=== PATIENT | male | born 1995 | race Caucasian/White ===

== ENCOUNTER 2019-08-15 19:14 | Inpatient (IN) | payer SELFPAY ==
[~2019-08-15] VITALS: Ht 177.8 cm; Wt 81.6 kg
[~2019-08-15 19:14] MED LIST: CYCL5TAB PO; IBUP-1007 PO
[2019-08-15] MEDS ORDERED: IV NORMAL SALINE 1000ML BAG 1,000 ML IV SCH (19:18)
[2019-08-15] MEDS ORDERED: ONDANSETRON PF 4 MG/2 ML VIAL. ONE (19:20)
[2019-08-15] MEDS: fentaNYL PF VIAL 100 MCG/2 ML VIAL IV PRN ×4 (19:23→23:23)
[2019-08-15 19:30] LABS: BASO # 0.1 x10^3/uL (0.0-0.2); BASO % 1 % (0-3); EOS # 0.2 x10^3/uL (0.0-0.7); EOS % 2 % (0-3); HEMOGLOBIN 14.9 g/dL (13.0-17.5); LYMPH # 4.5 x10^3/uL (1.0-4.8); LYMPH % 38 % (24-48); MEAN CORPUSCULAR HEMOGLOBIN 29 pg (25-35); MEAN CORPUSCULAR HGB CONC 34 g/dL (31-37); MEAN CORPUSCULAR VOLUME 85 fL (79-100); MONO # 1.1 x10^3/uL (0.0-1.1); MONO % 9 % (0-9); NEUT # 5.7 x10^3/uL (1.8-7.7); NEUT % 49 % (31-73); PLATELET COUNT 271 x10^3/uL (140-400); RED BLOOD COUNT 5.19 x10^6/uL (4.30-5.70); WHITE BLOOD COUNT 11.7 x10^3/uL (4.0-11.0)
[2019-08-15] MEDS ORDERED: ONDANSETRON PF 4 MG/2 ML VIAL. IVP ONE (19:30)
[2019-08-15 19:35] LABS: CALCIUM 8.6 mg/dL (8.5-10.1); CREATININE 1.3 mg/dL (0.7-1.3); GFR 69.7; POTASSIUM 3.3 mmol/L (3.5-5.1)
[2019-08-15 19:38] LABS: PROTHROMBIN TIME PATIENT 12.8 SEC (11.7-14.0)
[2019-08-15 19:41] LABS: ALBUMIN 3.7 g/dL (3.4-5.0); ALBUMIN/GLOBULIN RATIO 1.2 (1.0-1.7); TOTAL BILIRUBIN 0.3 mg/dL (0.2-1.0); TOTAL PROTEIN 6.9 g/dL (6.4-8.2)
[2019-08-15] MEDS ORDERED: IOHEXOL 350 MG/ML 100 ML VIAL. IV ONE (19:45)
[2019-08-15] MEDS ORDERED: CONTRAST GIVEN. MC PRN (19:45)
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
[2019-08-15] MEDS ORDERED: HYDROmorphone 2 MG/ML VIAL IV ONE ×3 (20:30→22:00)
[2019-08-15] MEDS ORDERED: IV NORMAL SALINE 1000ML BAG 1,000 ML IV ONE (20:30)
[2019-08-15 20:35] LABS: BASE EXCESS ABG -2 mmol/L (-3-3); HCO3 ABG 23 mmol/L (21-28); PCO2 ABG 36 mmHg (35-46); PO2 ABG 131 mmHg (85-108); SAT O2 ABG 98 % (92-99)
[2019-08-15] MEDS ORDERED: ONDANSETRON PF 4 MG/2 ML VIAL. IV PRN ×2 (21:00→21:15)
[2019-08-15 21:02] LABS: FIO2 ABG 32
[2019-08-15] MEDS ORDERED: ACETAMINOPHEN 325 MG TABLET. PO PRN (21:15)
[2019-08-15] MEDS ORDERED: DOCUSATE SODIUM 100 MG CAPSULE. PO PRN (21:15)
[2019-08-15] MEDS ORDERED: guaiFENesin ORAL 200 MG/10 ML LIQUID. PO PRN (21:15)
[2019-08-15] MEDS ORDERED: ALBUTEROL SULFATE 2.5 MG/3 ML NEBU. NEB PRN (21:15)
[2019-08-15 22:01] LABS: BILIRUBIN,URINE NEGATIVE (NEG); CLARITY,URINE CLEAR; COLOR,URINE YELLOW; NITRITE,URINE NEGATIVE (NEG); PROTEIN,URINE NEGATIVE (NEG-TRACE); UROBILINOGEN,URINE 0.2 mg/dL (0.2 mg/dL)
[2019-08-15 22:08] LABS: BACTERIA,URINE 0 /HPF (0-FEW); BARBITURATES NEG (NEG); BENZODIAZEPINES NEG (NEG); CANNABINOIDS POS (NEG); COCAINE NEG (NEG); HYALINE CASTS, URINE FEW /HPF; METHADONE NEG (NEG); OPIATES POS (NEG); PHENCYCLIDINE NEG (NEG); RBC,URINE OCC /HPF (0-2); SQUAMOUS EPITHELIAL CELL,UR FEW /LPF
[2019-08-15 22:10] LABS: AMPHETAMINE/METHAMPHETAMINE NEG (NEG)
[2019-08-15] MEDS: IV NORMAL SALINE 1000ML BAG 1,000 ML IV SCH (22:38)
[2019-08-15] MEDS: MORPHINE SULFATE 2 MG/ML VIAL. IV PRN (22:53)
[2019-08-15 23:00] VITALS: BP 123/80
--- NOTE | 2019-08-15 23:00 | NUR ---
Pt admitted to room 658 via bed accompanied by ED staff. Belongings checked and pain concerns addressed at this time. Wounds dressed in ED. Wound photos not taken at this time per patient request due to current pain situation. Will monitor and pass along to day RN.
[2019-08-15] MEDS: ZOLPIDEM 5 MG TABLET. PO PRN (23:23)
[2019-08-16] MEDS: fentaNYL PF VIAL 100 MCG/2 ML VIAL IV PRN ×11 (00:33→22:23)
[2019-08-16] MEDS: MORPHINE SULFATE 2 MG/ML VIAL. IV PRN (01:23)
[2019-08-16 03:00] VITALS: BP 123/80
[2019-08-16] MEDS: LORazepam 0.5 MG TABLET PO PRN ×2 (04:39→20:33)
[2019-08-16 04:43] LABS: BASO % 0 % (0-3); EOS % 0 % (0-3); HEMOGLOBIN 11.9 g/dL (13.0-17.5); LYMPH # 1.3 x10^3/uL (1.0-4.8); LYMPH % 8 % (24-48); MEAN CORPUSCULAR HEMOGLOBIN 29 pg (25-35); MEAN CORPUSCULAR HGB CONC 34 g/dL (31-37); MEAN CORPUSCULAR VOLUME 85 fL (79-100); MONO # 1.4 x10^3/uL (0.0-1.1); MONO % 9 % (0-9); NEUT # 13.8 x10^3/uL (1.8-7.7); NEUT % 84 % (31-73); PLATELET COUNT 170 x10^3/uL (140-400); RED BLOOD COUNT 4.14 x10^6/uL (4.30-5.70); RED CELL DISTRIBUTION WIDTH 14.2 % (11.5-14.5); WHITE BLOOD COUNT 16.5 x10^3/uL (4.0-11.0)
[2019-08-16 04:44] LABS: CALCIUM 7.8 mg/dL (8.5-10.1); CREATININE 1.1 mg/dL (0.7-1.3); GFR 84.5; POTASSIUM 4.2 mmol/L (3.5-5.1)
--- NOTE | 2019-08-16 06:52 | EKG ---
[facility] [address] [place] [address] Test Date: 2019-08-15 Test Time: 19:58:43 Pat Name: LISA ROSALES Department: Room: [facility] 1 Gender: M Film [employer]ing [employer]: : 1995 Requested By: LEENA MALDONADO Order Number: [id number] Reading MD: Vish Santamaria Measurements Intervals [place] Rate: 80 P: 34 [place]: 152 QRS: 66 QRSD: 96 T: 56 QT: 352 QTc: 409 Interpretive Statements SINUS RHYTHM INCOMPLETE RIGHT BUNDLE BRANCH BLOCK Electronically Signed On 08-16-2019 13:39:58 CDT by Vish Santamaria
[2019-08-16 07:20] VITALS: BP 125/67
[2019-08-16 07:33] LABS: % BANDS 8 % (0-9); % LYMPHS 14 % (24-48); % MONOS 10 % (0-10); % SEGS 68 % (35-66); PLT ESTIMATE ADEQUATE (ADEQUATE)
[2019-08-16] MEDS: IV NORMAL SALINE 1000ML BAG 1,000 ML IV SCH ×2 (08:20→17:30)
[2019-08-16] MEDS ORDERED: MORPHINE SULFATE 2 MG/ML VIAL. IV PRN (09:00)
[2019-08-16] MEDS ORDERED: KETOROLAC 30 MG/ML VIAL. IVP ONE (09:00)
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
[2019-08-16 11:20] VITALS: BP 118/64
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
[2019-08-16 15:21] VITALS: BP 118/58
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
[2019-08-16 19:59] VITALS: BP 112/64
[2019-08-16] MEDS: ZOLPIDEM 5 MG TABLET. PO PRN (20:33)
[2019-08-16] MEDS: NICOTINE 21MG PATCH. TD SCH (20:33)
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
[2019-08-16 23:26] VITALS: BP 109/74
[2019-08-17] MEDS: fentaNYL PF VIAL 100 MCG/2 ML VIAL IV PRN ×2 (01:41→06:22)
[2019-08-17 07:20] VITALS: BP 123/91
[2019-08-17] MEDS ORDERED: oxyCODONE/APAP 7.5/325 1 TAB TABLET PO PRN (08:45)
[2019-08-17] MEDS ORDERED: KETOROLAC 30 MG/ML VIAL. IVP ONE (08:45)
[2019-08-17] MEDS: NICOTINE 21MG PATCH. TD SCH (09:22)
[2019-08-17] MEDS ORDERED: OXYC1TAB15 PO (10:21)
[2019-08-17] MEDS ORDERED: IBUP-1007 PO (10:21)
[2019-08-17] MEDS ORDERED: DOCU-153 PO (10:21)
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
[2019-08-17] MEDS ORDERED: POLYETHYLENE GLYCOL 3350 17 GM PACKET. PO ONE (10:30)
[2019-08-17 11:15] VITALS: BP 133/86
--- NOTE | 2019-08-17 11:35 | NUR ---
Pt discharged to home with files. Discharge teaching done. 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 Discussed wound treatments and signs and symptoms of infection. Pt verbalized understanding
== END 2019-08-17 11:35 | disposition home or self-care (01) | DRG 914 ==
LOC: ER 19:14 → 6 SOUTH 20:42
PROVIDERS: ADMIT Internal Medicine; ATTEND Internal Medicine
DX: S71.142A Puncture wound with foreign body, left thigh, initial encounter (principal); F17.200 Nicotine dependence, unspecified, uncomplicated; F90.9 Attention-deficit hyperactivity disorder, unspecified type; Y93.89 Activity, other specified; Y92.89 Other specified places as the place of occurrence of the external cause; Y99.8 Other external cause status
CPT/HCPCS: 36415; 36600; 73552; 73706; 80048; 80053; 80307; 81001; 82805; 85007; 85025; 85610; 85730; 86850; 86900; 86901; 93005; G0480; J0696; J1170; J1885; J2270; J2405; J3010; J7030; Q9967; G0378